=== PATIENT | male | born 1985 | race Caucasian/White ===

== ENCOUNTER 2017-02-02 13:27 | Emergency (ER) | payer OTHER ==
[2017-02-02 13:43] VITALS: BP 137/87
--- NOTE | 2017-02-02 13:48 | EDM.PDOC ---
ED HPI GENERAL MEDICAL PROBLEM - General Chief Complaint: Laceration Stated Complaint: CUT FINGER, [id number] Time Seen by Provider: 02/02/17 13:48 Source of Information: Reports: Patient History Limitations: Reports: No Limitations - History of Present Illness INITIAL COMMENTS - FREE TEXT/NARRATIVE: Pt accidently cut the web skin between right digit one and two removing a rope from a mooring for his boat. Tetanus up to date. Occurred just before arrival. Right Hand Pain Score (Numeric/FACES): 3 - Related Data Allergies Allergy/AdvReac Type Severity Reaction Status Date / Time No Known Allergies Allergy Verified 02/02/17 13:39 Home Meds: Home Meds . [No Known Home Meds] 02/02/17 [History] Past Medical History - Past Health History Medical/Surgical History: Denies Medical/Surgical History - Past Surgical History Musculoskeletal Surgical History: Reports: Other (See Below) Other Musculoskeletal Surgeries/Procedures:: right wrist surgery Social & Family History - Family History Family Medical History: Noncontributory - Tobacco Use Smoking Status *Q: Former Smoker Used Tobacco, but Quit: Yes Month Tobacco Last Used: 1 - Caffeine Use Caffeine Use: Reports: None - Recreational Drug Use Recreational Drug Use: No ED ROS GENERAL - Review of Systems Review Of Systems: See Below Constitutional: Reports: No Symptoms Skin: Reports: Other (cut webspace right bet digit one and two) ED EXAM, SKIN/RASH Exam: See Below Exam Limited By: No Limitations General Appearance: Alert Skin: Other (between right thumb and index finger in webspace v-shaped 3 cm partial thick laceration. no active bleeding. full rom of all digits, digits brisk cap refill and sensory intact. radial/ulnar pulses intact on right.) ED SKIN PROCEDURES - Laceration/Wound Repair Right Hand Lac/wound length in cm: 3 Appearance: Subcutaneous Distal NVT: neuro & vascular intact, no tendon injury Anesthetic Type: local Local anesthesia - Lidocaine (Xylocaine): 1% plain Local anesthetic volume: other (10 cc) Skin prep: chlorhexidine (hibiciens), saline Exploration/Debridement/Repair: other (wound clean v-shaped flap with good approximation and no avulsion of tissue) Closed with: sutures Suture size: other (5-0 ethilon) # of sutures: 12 Suture type: interrupted, other (ethilon) Sterile dressing applied: nurse Tetanus status addressed: Yes Complications: No Progress/Comments: Pt tolerated procedure well. Course - Vital Signs Text/Narrative:: Given script amox 500mg tid for 10 days. norco 5/325 one or two po q 4-6 hours prn. #20, no refill. Last Recorded V/S: Last Vital Signs Temp 36.4 C 02/02/17 13:40 Pulse 88 02/02/17 13:40 Resp 16 02/02/17 13:40 BP 137/87 02/02/17 13:40 Pulse Ox 99 02/02/17 13:40 - Orders/Labs/Meds Meds: Medications Discontinued Medications Generic Name Dose Route Start Last Admin Trade Name Freq PRN Reason Stop Dose Admin Lidocaine HCl 30 ml 02/02/17 13:49 02/02/17 13:52 Xylocaine-Mpf 1% INJECT 02/02/17 13:50 30 ml ONETIME ONE Administration Departure - Departure Time of Disposition: 14:44 Disposition: Home, Self-Care 01 Condition: good Clinical Impression: Laceration, Puncture wound - injury - Discharge Information Instructions: Stitches, Crossnore, or Adhesive Wound Closure, [id number] Forms: ED Department Discharge Additional Instructions: sutures out in 7 days. keep clean with soap and water, watch for signs of infection. sutures out in 7 day. pain medicine as needed. antibiotic as directed.
[2017-02-02] MEDS ORDERED: Lidocaine 1% 30 ML SDV INJECT ONE (13:49)
== END 2017-02-02 14:49 | disposition home or self-care (01) ==
LOC: DL.ED 13:27
DX: S61.411A Laceration without foreign body of right hand, initial encounter (principal); W45.8XXA Other foreign body or object entering through skin, initial encounter; Y93.89 Activity, other specified; Z87.891 Personal history of nicotine dependence
CPT/HCPCS: 12002; 99283